=== PATIENT | male | born 1995 | race Caucasian/White ===

== ENCOUNTER 2020-12-27 00:07 | Emergency (ER) | payer OTHER ==
[~2020-12-27] VITALS: Ht 180.3 cm; Wt 90.7 kg
--- NOTE | 2020-12-27 00:44 | NUR ---
pt bibself c/o dog bite on rt forearm. pt aaox4 breathing evenly and unlabored. Per pt, a maltese solis "clamped down on my arm". Upon assessment, pt has swelling on forearm and 4 puncture wounds. Md at bedside and emt at bedside for wound care. pt attached to monitor and pox. will continue to monitor.
[2020-12-27] MEDS ORDERED: TDAP [DIPH/PERTUSSIS/TET] 0.5 ML VIAL IM ONE ×2 (01:00)
[2020-12-27] MEDS ORDERED: HYDROCODONE/APAP 5/325MG TABLET ONE (01:00)
[2020-12-27] MEDS ORDERED: HYDROCODONE/APAP 5/325MG TABLET PO ONE (01:00)
[2020-12-27] MEDS ORDERED: AMOX-430 PO (01:16)
--- NOTE | 2020-12-27 01:20 | NUR ---
Patient discharged to home in stable condition. Written and verbal after care instructions given. Patient verbalizes understanding of instruction. pt ambulatory with a steady gait
[2020-12-27] MEDS ORDERED: AMOX/CLAVULANATE 875 MG TABLET PO ONE (01:30)
[2020-12-27 01:31] VITALS: BP 135/86
[2020-12-27] MEDS ORDERED: AMOX/CLAVULANATE 875 MG TABLET ONE (01:38)
== END 2020-12-27 01:20 | disposition home or self-care (01) ==
LOC: ER 00:14
DX: S51.831A Puncture wound without foreign body of right forearm, initial encounter (principal); Z88.1 Allergy status to other antibiotic agents; W54.0XXA Bitten by dog, initial encounter; Y93.89 Activity, other specified; Y92.89 Other specified places as the place of occurrence of the external cause; Y99.8 Other external cause status
CPT/HCPCS: 73090-TC; 90715

== ENCOUNTER 2021-02-11 21:20 | Emergency (ER) | payer OTHER ==
[~2021-02-11] VITALS: Ht 180.3 cm; Wt 90.7 kg
[~2021-02-11 21:20] MED LIST: AMOX-430 PO
[2021-02-11 21:50] VITALS: BP 145/79
[2021-02-11] MEDS ORDERED: CEPH500T PO (22:07)
[2021-02-11] MEDS ORDERED: SULF1TAB48 PO (22:07)
[2021-02-11] MEDS ORDERED: CEPHALEXIN MONOHYDRATE 500 MG CAPSULE PO ONE (22:10)
[2021-02-11] MEDS ORDERED: SULFAMETH/TRIMETH 800/160 MG 1 UDTAB TABLET ONE (22:10)
[2021-02-11] MEDS ORDERED: IBUPROFEN 600 MG TABLET ONE (22:10)
[2021-02-11] MEDS: CEPHALEXIN MONOHYDRATE 500 MG CAPSULE PO ONE (22:13)
[2021-02-11] MEDS: SULFAMETH/TRIMETH 800/160 MG 1 UDTAB TABLET PO ONE (22:13)
[2021-02-11] MEDS: IBUPROFEN 600 MG TABLET PO ONE (22:13)
== END 2021-02-11 22:26 | disposition home or self-care (01) ==
LOC: ER 21:22
DX: L73.9 Follicular disorder, unspecified (principal); F17.200 Nicotine dependence, unspecified, uncomplicated; Z88.1 Allergy status to other antibiotic agents; Z60.2 Problems related to living alone; Z79.899 Other long term (current) drug therapy